=== PATIENT | male | born 1940 | race Hispanic/Latino ===

== ENCOUNTER → 2018-08-27 | Outpatient (CLI) | payer MEDICARE | END | disposition home or self-care (01) | LOC: OIH 11:24 | PROVIDERS: ATTEND Family Medicine | DX: M47.815 Spondylosis without myelopathy or radiculopathy, thoracolumbar region (principal) | CPT/HCPCS: 71046 ==

== ENCOUNTER → 2018-09-12 | Outpatient (CLI) | payer MEDICARE, OTHER ==
--- NOTE | 2018-09-12 11:42 | NUR ---
MBSS COMPLETE. -S/S OF ASPIRATION. RECOMMEND MECHANICAL SOFT, THIN LIQUID DIET; PILLS WHOLE WITH LIQUIDS. PATIENT INFORMATION: Pt IS A 78 Y.O. MALE REFERRED FOR AN MBSS SECONDARY TO C/O FOODS GETTING STUCK IN THE BACK OF HIS THROAT. Pt REPORTS THAT IT HAS BEEN HAPPENING FOR 1 YEAR. Pt WITH PAST MEDICAL HISTORY SIGNIFICANT FOR GERD. Pt DOES NOT REPORT ANY OTHER MEDICAL HISTORY. Pt WITH SPARSE DENTITION AND POOR REPAIR. MBSS INTERPRETATION: SWALLOW FUNCTION AND EFFICIENCY WITHIN FUNCTIONAL LIMITS. ORAL MOTOR STRENGTH, COORDINATION, AND ROM WITHIN FUNCTIONAL LIMITS. LARYNGEAL ELEVATION/EXCURSION STRONG WITH TIMELY PHARYNGEAL RESPONSE. NO OVERT SIGNS OR SYMPTOMS OF ASPIRATION PRESENT DURING MBSS. Pt UTILIZING LINGUAL COMPRESSION WITH HARD PALATE TO MANAGE COOKIE/SOLID TEXTURES. DIET DOWNGRADE IS RECOMMENDED SECONDARY TO POOR DENTITION. A-P VIEW: BOLUS REFLUX INTO MID SECTION OF ESOPHAGUS WITH COUGH RESPONSE. TOTAL BOLUS TRANSIT TIME OF MORE THAN 30 SECONDS. TRIALS: 1. TSP PUREED: GOOD 2. TSP PUDDING: GOOD 3. TSP MIXED TEXTURE: GOOD 4: COOKIE: DECREASED MASTICATION NO ASPIRATION 5. CUP SIP THIN LIQUIDS: GOOD 6. CUP SIP THIN LIQUIDS: GOOD 7. A-P PUDDING: OBSERVATIONS DESCRIBED ABOVE RECOMMENDATIONS: 1. MECHANICAL SOFT, THIN LIQUID DIET; PILLS WHOLE WITH LIQUIDS. 2. COMPENSATORY STRATEGIES (PROPHYLAXIS): *SEATED AT 90 DEGREE ANGLE *SLOW RATE *REMAIN UPRIGHT 30 MINUTES AFTER MEAL TIMES 3. GI CONSULT DUE TO A-P VIEW G-CODES SWALLOWING: [id number] Addendum: 09/12/18 at 1153 by PRANAY NAVARRO Amended: Links added.
== END | disposition home or self-care (01) ==
LOC: RAH 09:07
PROVIDERS: ATTEND Family Medicine
DX: R13.10 Dysphagia, unspecified (principal); K21.9 Gastro-esophageal reflux disease without esophagitis; E04.1 Nontoxic single thyroid nodule
CPT/HCPCS: 74230; 76536; 92611; G8996; G8997; G8998

== ENCOUNTER 2018-12-03 08:15 | Inpatient (IN) | payer OTHER ==
[~2018-12-03] VITALS: Ht 182.9 cm; Wt 76.9 kg
[2018-12-03] MEDS ORDERED: ZOSYN 3.375GM+NS 50ML 50 ML IV ONE (08:31)
[2018-12-03 08:37] LABS: BASOPHILS % (AUTO) 0.7 % (0.0-5.0); EOSINOPHILS % (AUTO) 0.7 % (0.0-8.0); HEMATOCRIT 25.4 % (42-54); LYMPHOCYTES % (AUTO) 12.3 % (21.0-51.0); MEAN CORPUSCULAR HEMOGLOBIN 27.6 pg (27.0-33.0); MEAN CORPUSCULAR HGB CONC 32.1 g/dL (32.0-36.0); MONOCYTES % (AUTO) 5.6 % (3.0-13.0); NEUTROPHILS % (AUTO) 80.7 % (40.0-77.0); PLATELET COUNT (AUTO) 274 K/uL (130-400); RED BLOOD CELL COUNT(AUTO) 2.96 MIL/uL (4.50-6.20); RED CELL DISTRIBUTION WIDTH 16.6 % (11.0-15.5); WHITE BLOOD COUNT (AUTO) 11.8 K/uL (4.8-10.8)
[2018-12-03 08:41] LABS: CREATININE 0.8 mg/dL (0.5-1.5); POTASSIUM 4.6 mmol/L (3.5-5.1)
[2018-12-03 08:46] LABS: ALBUMIN 1.5 g/dL (3.5-5.0); BILIRUBIN,TOTAL 0.4 mg/dL (0.2-1.0); TOTAL PROTEIN, SERUM 7.4 g/dL (6.0-8.3)
[2018-12-03] MEDS ORDERED: ACETAMINOPHEN ELIXIR 650 MG/20.3 ML UDCUP ONE (08:50)
[2018-12-03 08:56] LABS: INR 1.05 (0.85-1.15); PARTIAL THROMBOPLASTIN TIME 30.8 SEC (26.3-35.5)
[2018-12-03 08:59] LABS: APPEARANCE,URINE Clear (CLEAR); BILIRUBIN,URINE Negative (NEGATIVE); COLOR,URINE Yellow (YELLOW); GLUCOSE, URINE (UA) Negative (NEGATIVE); KETONES,URINE Negative (NEGATIVE); LEUKOCYTE ESTERASE ,URINE Small (NEGATIVE); NITRATE,URINE Positive (NEGATIVE); OCCULT BLOOD,URINE Nonhemolyzed Trace (NEGATIVE); PH,URINE 8.5 (5.0-8.0); PROTEIN,URINE POS 1+ mg/dL (NEGATIVE); UROBILINOGEN,URINE >=8.0 mg/dL (0.2-1.0)
[2018-12-03 09:26] LABS: BACTERIA,URINE Moderate /HPF (None Seen)
[2018-12-03 09:27] LABS: AMORPHOUS SEDIMENT,UR Moderate /LPF (None Seen); RBC,URINE 0-1 /HPF (0-1)
[2018-12-03 09:28] LABS: SQUAMOUS EPITHELIAL CELL,UR 0-2 /HPF (0-2)
[2018-12-03] MEDS ORDERED: IOHEXOL-350 75 ML VIAL IV ONE (10:25)
[2018-12-03] MEDS: CEFTRIAXONE SODIUM 1 GM IVP SCH (11:45)
[2018-12-03] MEDS ORDERED: SODIUM CHLORIDE 0.9% 1000ML 1,000 ML IV SCH (13:49)
[2018-12-03] MEDS: GUAIFENESIN-DM 200/20 MG 10 ML PO SCH ×2 (14:00→20:00)
[2018-12-03] MEDS: FERROUS SULFATE 325 MG TABLET.DR PO SCH (14:00)
[2018-12-03] MEDS ORDERED: LEVOFLOXACIN 750 MG/D5W 150 ML 150 ML ONE (14:01)
[2018-12-03] MEDS ORDERED: COMPOUND IV MISC 1 EACH IVSOLN MISC PRN (15:30)
[2018-12-03] MEDS ORDERED: CEFTRIAXONE SODIUM 1 GM ONE (15:31)
[2018-12-03] MEDS ORDERED: AZITHROMYCIN 500MG+NS 250ML 250 ML IV ONE (15:46)
[2018-12-03] MEDS: INSULIN HUMULIN R 100 UNIT/ML 3ML SQ SCH ×2 (16:30→21:00)
[2018-12-03] MEDS ORDERED: GUAIFENESIN-DM 200/20 MG 10 ML ONE (16:36)
[2018-12-03] MEDS ORDERED: INSULIN HUMULIN R 100 UNIT/ML 3ML ONE (18:10)
[2018-12-03] MEDS: IPRATROPIUM/ALBUTEROL SULFATE 3 ML SOLUTION IH SCH ×2 (18:50→23:05)
[2018-12-03 21:05] VITALS: BP 127/65
[2018-12-04] VITALS: BP 144/73
[2018-12-04] MEDS: FAMOTIDINE 20MG TAB 20 MG TAB PO SCH ×3 (03:02→21:39)
[2018-12-04] MEDS: FERROUS SULFATE 325 MG TABLET.DR PO SCH ×4 (03:02→21:39)
[2018-12-04] MEDS: GUAIFENESIN-DM 200/20 MG 10 ML PO SCH ×4 (03:02→21:39)
[2018-12-04 04:00] VITALS: BP 135/84
[2018-12-04 04:55] LABS: MEAN CORPUSCULAR HEMOGLOBIN 28.6 pg (27.0-33.0); MEAN CORPUSCULAR HGB CONC 32.8 g/dL (32.0-36.0); MEAN CORPUSCULAR VOLUME 87.2 fL (79-99); PLATELET COUNT (AUTO) 199 K/uL (130-400); RED BLOOD CELL COUNT(AUTO) 2.75 MIL/uL (4.50-6.20); RED CELL DISTRIBUTION WIDTH 16.3 % (11.0-15.5); WHITE BLOOD COUNT (AUTO) 9.6 K/uL (4.8-10.8)
[2018-12-04 05:05] LABS: CREATININE 0.6 mg/dL (0.5-1.5)
[2018-12-04 05:07] LABS: % IRON SATURATION 19.8 % (30-44)
[2018-12-04] MEDS: IPRATROPIUM/ALBUTEROL SULFATE 3 ML SOLUTION IH SCH ×4 (06:40→23:09)
[2018-12-04] MEDS: INSULIN HUMULIN R 100 UNIT/ML 3ML SQ SCH ×3 (06:56→16:30)
[2018-12-04 07:30] VITALS: BP 125/67
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
[2018-12-04] MEDS: ENOXAPARIN SODIUM 40 MG/0.4 ML SYRINGE SQ SCH (09:13)
[2018-12-04] MEDS: IRON SUCROSE COMPLEX 100 MG in SODIUM CHLORIDE 0.9% 50 ML IV SCH (09:31)
--- NOTE | 2018-12-04 09:32 | NUR ---
RD Notification - Peg Feeding PEG Feeding recommendations: Glucerna 1.5 @60mL/hr to provide: 1440mL/2160kcal/119gm protein/1093mL free H2O H2O Flushes: 270mL Q6hrs Tube feeding recommendations placed in patient chart. Patient monitored labs: BUN 24, Glu 164, Ca 8.4, Fe 21, Alb 1.5. RD to continue to monitor. Please notify RD as nutritional concerns arise. Thank you. Addendum: 12/04/18 at [address] Amended: Links added.
[2018-12-04] MEDS ORDERED: LACT10SO9 PEG (10:08)
[2018-12-04] MEDS ORDERED: APIX2.5T PEG (10:08)
[2018-12-04] MEDS ORDERED: BISA10SU8 RC (10:21)
[2018-12-04] MEDS ORDERED: ACET-2247 PO (10:21)
[2018-12-04] MEDS ORDERED: FERR220E6 PEG (10:21)
[2018-12-04] MEDS ORDERED: METF500S7 PEG (10:21)
[2018-12-04] MEDS ORDERED: DOCU60SY6 PO (10:21)
[2018-12-04] MEDS ORDERED: ALBU2.5V2 IH (10:21)
[2018-12-04] MEDS ORDERED: TYL3 PO (10:21)
[2018-12-04] MEDS ORDERED: SENN-178 PO (10:21)
[2018-12-04] MEDS ORDERED: FOLI1TAB15 (10:21)
[2018-12-04 11:00] VITALS: BP 135/71
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
[2018-12-04] MEDS: AZITHROMYCIN 500MG+NS 250ML 250 ML IV SCH (13:38)
[2018-12-04] MEDS: CEFTRIAXONE SODIUM 1 GM IVP SCH (13:38)
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
[2018-12-04 16:00] VITALS: BP 131/70
--- NOTE | 2018-12-04 17:00 | NUR ---
IMCREASE TO TUBE FEEDING FROM 25 CC HR TO 30 CC HR .OF THE CONTINOUS TUBE FEEDING . . ASPER ADULT TUBE FEEDING ORDERS . . GOAL OF RATE OF 60 MLS .
--- NOTE | 2018-12-04 18:00 | NUR ---
COCCYX SITE . PICTURES DONE ,WITH A [employer] DRSG APPLICATION ON. WOUND CARE ORDER WAS PLACE, AT PRESENT CARE GIVEN CLEANSE SITE WITH THE SALINE. AND DRY . FOULSMELLING NOTED . AND HIS SKIN TISSUE WITH SOME BLACKNESS NOTED . PT . CAME IN WITH THE SKIN ISSUES , PT HAS A WAFFLE MATTRESS ON , FOR SKIN CARE.
[2018-12-04 20:00] VITALS: BP 132/67
[2018-12-05] VITALS (7 sets, daily range): BP systolic 118–150; BP diastolic 57–77
[2018-12-05] MEDS: GUAIFENESIN-DM 200/20 MG 10 ML PO SCH ×4 (02:31→22:09)
[2018-12-05 04:32] LABS: HEMATOCRIT 23.6 % (42-54); MEAN CORPUSCULAR HEMOGLOBIN 27.7 pg (27.0-33.0); MEAN CORPUSCULAR HGB CONC 32.2 g/dL (32.0-36.0); MEAN CORPUSCULAR VOLUME 85.8 fL (79-99); PLATELET COUNT (AUTO) 167 K/uL (130-400); RED BLOOD CELL COUNT(AUTO) 2.75 MIL/uL (4.50-6.20); RED CELL DISTRIBUTION WIDTH 16.7 % (11.0-15.5)
[2018-12-05 04:44] LABS: CREATININE 0.6 mg/dL (0.5-1.5); POTASSIUM 4.1 mmol/L (3.5-5.1)
[2018-12-05] MEDS: IPRATROPIUM/ALBUTEROL SULFATE 3 ML SOLUTION IH SCH ×4 (06:25→23:51)
[2018-12-05] MEDS: INSULIN HUMULIN R 100 UNIT/ML 3ML SQ SCH ×3 (06:53→19:41)
[2018-12-05] MEDS: AZITHROMYCIN 500MG+NS 250ML 250 ML IV SCH (10:50)
[2018-12-05] MEDS: IRON SUCROSE COMPLEX 100 MG in SODIUM CHLORIDE 0.9% 50 ML IV SCH (10:51)
[2018-12-05] MEDS: FERROUS SULFATE 325 MG TABLET.DR PO SCH ×3 (10:52→21:00)
[2018-12-05] MEDS: ENOXAPARIN SODIUM 40 MG/0.4 ML SYRINGE SQ SCH (10:52)
[2018-12-05] MEDS: FAMOTIDINE 20MG TAB 20 MG TAB PO SCH ×2 (10:52→22:10)
[2018-12-05] MEDS: LEVOFLOXACIN 500 MG/D5W 100 ML 100 ML IV SCH (10:55)
--- NOTE | 2018-12-05 14:51 | NUR ---
CM Note: HNR pending ins auth Spoke to Jodi Cobian, received updated clinicals, forwarded to insurance already. Pt pending ins auth at this time. Primary nurse aware. CM to cont to follow up.
[2018-12-05] MEDS: ACETAMINOPHEN-CODEINE 300/30MG TAB PO PRN (22:10)
[2018-12-06 03:25] VITALS: BP 130/76
[2018-12-06 04:54] LABS: HEMATOCRIT 24.2 % (42-54); MEAN CORPUSCULAR HEMOGLOBIN 28.3 pg (27.0-33.0); MEAN CORPUSCULAR HGB CONC 32.5 g/dL (32.0-36.0); MEAN CORPUSCULAR VOLUME 86.8 fL (79-99); NUCLEATED RED BLOOD CELLS 0.1 % (0.0-0.19); PLATELET COUNT (AUTO) 89 K/uL (130-400); RED BLOOD CELL COUNT(AUTO) 2.78 MIL/uL (4.50-6.20); RED CELL DISTRIBUTION WIDTH 16.5 % (11.0-15.5)
[2018-12-06 05:12] LABS: CREATININE 0.5 mg/dL (0.5-1.5); POTASSIUM 4.1 mmol/L (3.5-5.1)
[2018-12-06] MEDS: IPRATROPIUM/ALBUTEROL SULFATE 3 ML SOLUTION IH SCH ×4 (07:01→23:33)
[2018-12-06 08:08] VITALS: BP 145/69
[2018-12-06] MEDS: ENOXAPARIN SODIUM 40 MG/0.4 ML SYRINGE SQ SCH (09:00)
--- NOTE | 2018-12-06 10:00 | NUR ---
ALERT AND AWAKE NOW WITH NO ACUTE RESPIRATORY DISTRESS ON ROOM AIR; ORIENTED TO SELF AND PLACE. PINS IN PLACE, WEAKNESS TO BLE, ABLE TO PUSH BUT UNABLE TO LIFT TO GRAVITY. F/C DRAINING CLEAR YELLOW URINE OBSERVED BELOW BLADDER LEVEL. FEEDING IS INFUSING AT 55ML/HR. RESIDUAL IS 20ML, MOUTH CARE PROVIDED, TOLERATED THE ACTIVITY WELL.
[2018-12-06] MEDS: LEVOFLOXACIN 500 MG/D5W 100 ML 100 ML IV SCH (10:19)
[2018-12-06] MEDS: IRON SUCROSE COMPLEX 100 MG in SODIUM CHLORIDE 0.9% 50 ML IV SCH (10:20)
[2018-12-06] MEDS: AZITHROMYCIN 500MG+NS 250ML 250 ML IV SCH (10:20)
[2018-12-06] MEDS: FAMOTIDINE 20MG TAB 20 MG TAB PO SCH ×2 (10:24→21:00)
[2018-12-06] MEDS: FERROUS SULFATE 325 MG TABLET.DR PO SCH (10:24)
[2018-12-06] MEDS: GUAIFENESIN-DM 200/20 MG 10 ML PO SCH ×4 (10:25→20:00)
[2018-12-06 12:02] VITALS: BP 147/73
[2018-12-06] MEDS: INSULIN HUMULIN R 100 UNIT/ML 3ML SQ SCH ×2 (12:09→18:00)
[2018-12-06] MEDS: FERROUS SULFATE 300 MG/5 ML LIQ UDCUP PO SCH ×2 (13:54→17:07)
[2018-12-06] MEDS: ACETAMINOPHEN-CODEINE 300/30MG TAB PO PRN (13:56)
[2018-12-06 16:00] VITALS: BP 146/68
--- NOTE | 2018-12-06 17:00 | NUR ---
TOLERATING FEEDING WELL. INCREASED TO 60ML/HR PER GOAL RATE
[2018-12-06 19:20] VITALS: BP 139/69
[2018-12-07] MEDS: GUAIFENESIN-DM 200/20 MG 10 ML PO SCH ×4 (02:00→21:49)
[2018-12-07 03:30] VITALS: BP 129/67
[2018-12-07] MEDS: INSULIN HUMULIN R 100 UNIT/ML 3ML SQ SCH ×3 (06:38→14:53)
[2018-12-07] MEDS: IPRATROPIUM/ALBUTEROL SULFATE 3 ML SOLUTION IH SCH ×2 (06:55→19:00)
[2018-12-07 07:30] VITALS: BP 132/66
[2018-12-07] MEDS: FERROUS SULFATE 300 MG/5 ML LIQ UDCUP PO SCH ×2 (09:43→14:54)
[2018-12-07] MEDS: ENOXAPARIN SODIUM 40 MG/0.4 ML SYRINGE SQ SCH (09:49)
[2018-12-07] MEDS: AZITHROMYCIN 500MG+NS 250ML 250 ML IV SCH (09:50)
[2018-12-07] MEDS: LEVOFLOXACIN 500 MG/D5W 100 ML 100 ML IV SCH (09:50)
[2018-12-07] MEDS: FAMOTIDINE 20MG TAB 20 MG TAB PO SCH ×2 (09:50→21:49)
[2018-12-07] MEDS: IRON SUCROSE COMPLEX 100 MG in SODIUM CHLORIDE 0.9% 50 ML IV SCH (09:50)
[2018-12-07] MEDS: ACETAMINOPHEN-CODEINE 300/30MG TAB PO PRN (10:20)
[2018-12-07 11:00] VITALS: BP 135/69
--- NOTE | 2018-12-07 11:56 | NUR ---
[facility] CONSULT PATIENT ASSESSED ORDERED: PATIENT PRESENTS WITH UNSTAGEABLE PRESSURE ULCER TO COCCYX AND STAGE I PRESSURE ULCER TO LT HEEL; [facility] RECOMMENDATIONS SUBMITTED. Addendum: 12/07/18 at 1158 by KATHARINA VALENTINE LVN LVN W Amended: Links added.
--- NOTE | 2018-12-07 12:01 | NUR ---
Nutrition Follow-up: Pt. on TF with Glucerna 1.5@60ml/hr. Pt. tolerating TF well with no residuals. Labs reviewed(Alb 1.5, BG 228). LBM: 12/07/18. SR-18, Coccyx ulcer / Left heel ulcer Stg 1. Recommendations: 1) Rec. 500mg Vit C BID and 220mg Zn sulfate QD to help promote wound healing. 2) Continue to monitor pt's nutritional status and TF tolerance. 3) Consult RD as nutrition concerns arise. Addendum: 12/07/18 at [address] Amended: Links added.
--- NOTE | 2018-12-07 15:56 | NUR ---
CM Note: HNR ins auth and acceptance Spoke to Jodi w/[employer], pt has ins auth and acceptance, EMS arranged and faxed. Primary nurse aware. CM to cont to follow up.
[2018-12-07 16:00] VITALS: BP 117/63
--- NOTE | 2018-12-07 19:00 | NUR ---
BEFORE DISCHARGE PERFORMED WOUND CARE TO SACRIUM, HEEL ,AND WET TO DRY DRESSING POST DC WOUND VAC . PATIENT TOLERATED WELL. PICTURES TAKEN TO AREAS OF BREAKDOWN AND WOUNDS . REPORT GIVEN TO NURSE MAJANO AT [facility] . PATIENT WILL BE TRANSPORTED VIA EMS . EMS CONFIRMED ,SPOKE WITH VICTOR HUGO
[2018-12-07 20:52] VITALS: BP 134/65
[2018-12-07] MEDS ORDERED: HONEY 1 APPL/ML TUBE TP SCH (22:00)
--- NOTE | 2018-12-07 22:00 | NUR ---
Re: Discharge Reported earlier that everything is set on this case, only pending is EMS to roll picker the pt, done at this time. Tele monitor discontinued, no belonging noted at the bedside.
== END 2018-12-07 22:00 | DRG 698 ==
LOC: EDH 08:15 → EDHIP 11:15 → 3DH 19:03
PROVIDERS: ADMIT Internal Medicine; ATTEND Internal Medicine
DX: T83.511A Infection and inflammatory reaction due to indwelling urethral catheter, initial encounter (principal); A41.9 Sepsis, unspecified organism; J18.9 Pneumonia, unspecified organism; E43 Unspecified severe protein-calorie malnutrition; J96.01 Acute respiratory failure with hypoxia; J98.11 Atelectasis; R64 Cachexia; N39.0 Urinary tract infection, site not specified; I10 Essential (primary) hypertension; E11.9 Type 2 diabetes mellitus without complications; Z68.23 Body mass index [BMI] 23.0-23.9, adult; D64.9 Anemia, unspecified; E78.5 Hyperlipidemia, unspecified; K22.8 Other specified diseases of esophagus; K44.9 Diaphragmatic hernia without obstruction or gangrene; Z17.1 Estrogen receptor negative status [ER-]; Z74.01 Bed confinement status; Z93.1 Gastrostomy status; Z86.73 Personal history of transient ischemic attack (TIA), and cerebral infarction without residual deficits
CPT/HCPCS: 36415; 71045; 71275; 80048; 80053; 81001; 82948; 83540; 83550; 83605; 85025; 85027; 85610; 85730; 87040; 87077; 87088; 87186; 93005; 94640; 94664; 99291; A4218; G0378; J0456; J0696; J1650; J1756; J1815; J1956; J2543; J7030; Q9967

== ENCOUNTER 2018-12-31 11:21 | Inpatient (IN) | payer OTHER | END 2019-01-12 01:50 | LOC: EDH 11:21 → EDHIP 15:03 → 3CH 17:28 | DX: D64.9 Anemia, unspecified (principal); L89.153 Pressure ulcer of sacral region, stage 3; C16.9 Malignant neoplasm of stomach, unspecified; C15.9 Malignant neoplasm of esophagus, unspecified; L89.159 Pressure ulcer of sacral region, unspecified stage; I10 Essential (primary) hypertension; E11.9 Type 2 diabetes mellitus without complications ==